=== PATIENT | female | born 1980 | race African-American/Black ===

== ENCOUNTER 2019-01-14 17:57 | Emergency (ER) | payer BC ==
[~2019-01-14] VITALS: Ht 160 cm; Wt 77.0 kg
[~2019-01-14 17:57] MED LIST: ACET325T33 PO; CIPR-193 PO; FLUC150T PO; PREN1TAB49 PO
[2019-01-14 18:06] VITALS: BP 142/64; PULSE 93; RESP 18; Ht 160 cm; Wt 77.0 kg
== END 2019-01-14 18:33 | disposition home or self-care (01) ==
LOC: E/R 17:57
DX: R30.0 Dysuria (principal)
CPT/HCPCS: 99283